=== PATIENT | male | born 2000 | race Caucasian/White ===

== ENCOUNTER 2021-01-29 12:29 | Emergency (ER) | payer BC ==
[2021-01-29] MEDS ORDERED: Erythromycin Base 0.5% Ophth Oint 3.5 GM Tube ONE (13:00)
--- NOTE | 2021-01-29 13:04 | EDM.PDOC ---
ED HPI GENERAL MEDICAL PROBLEM - General Chief Complaint: Eye Problems Stated Complaint: EYE PAIN Time Seen by Provider: 01/29/21 12:30 Source of Information: Reports: Patient History Limitations: Reports: No Limitations - History of Present Illness INITIAL COMMENTS - FREE TEXT/NARRATIVE: patient presented to the ER with a c/o right eye discomfort - h/o stye in the past. no fever or chills, no use of contacts. has been there for a week - tried warm pads - but nothing helped . Onset: Gradual Duration: Week(s): (1) Right Eye Pain Score (Numeric/FACES): 7 - Related Data Allergies Allergy/AdvReac Type Severity Reaction Status Date / Time No Known Allergies Allergy Verified 01/29/21 12:38 Home Meds: Home Meds Calcium Carbonate [Tums] 200 mg PO ASDIRECTED 01/29/21 [History] Erythromycin Base [Erythromycin 0.5% Ophth Oint] 1 applic OP Q12H #1 tube 01/29/21 [Rx] Past Medical History - Past Health History Medical/Surgical History: Denies Medical/Surgical History Social & Family History - Recreational Drug Use Drug Use in Last 12 Months: No ED ROS GENERAL - Review of Systems Review Of Systems: See Below Constitutional: Reports: No Symptoms Respiratory: Reports: No Symptoms Cardiovascular: Reports: No Symptoms GI/Abdominal: Reports: No Symptoms : Reports: No Symptoms Musculoskeletal: Reports: No Symptoms Skin: Reports: No Symptoms Neurological: Reports: No Symptoms ED EXAM GENERAL W FULL EYE - Physical Exam Exam: See Below Exam Limited By: No Limitations General Appearance: Alert, WD/WN, No Apparent Distress Eye Exam: Right Eye: Other (eye lid has a tender white spot) Eyelids: Right: Stye Conjunctiva & Sclera: Bilateral: Normal Appearance Cornea Exam: Bilateral: Normal Appearance Extraocular Movements: Bilateral: Intact Head: Atraumatic Respiratory/Chest: No Respiratory Distress Cardiovascular: Regular Rate, Rhythm Extremities: Normal Range of Motion Neurological: Alert, Oriented, Normal Cognition, Normal Gait, No Motor/Sensory Deficits Course - Vital Signs Last Recorded V/S: Last Vital Signs Temp 37.0 C 01/29/21 12:35 Pulse 84 01/29/21 12:35 Resp 18 01/29/21 12:35 BP 125/84 01/29/21 12:35 Pulse Ox 98 01/29/21 12:35 - Re-Assessments/Exams Free Text/Narrative Re-Assessment/Exam: 01/29/21 13:07 I&D of the stye using a 30 gauge needle small amount of purulent fluids was drained patient reports immediate relief of pressure Abx ointment was given Departure - Departure Time of Disposition: 13:08 Disposition: Home, Self-Care 01 Condition: Good Clinical Impression: Stye Qualifiers: Laterality: right Eyelid: upper Qualified Code(s): H00.011 - Hordeolum externum right upper eyelid - Discharge Information *PRESCRIPTION DRUG MONITORING PROGRAM REVIEWED*: Not Applicable *COPY OF PRESCRIPTION DRUG MONITORING REPORT IN PATIENT [facility]: Not Applicable Prescriptions: Erythromycin Base [Erythromycin 0.5% Ophth Oint] 1 applic OP Q12H #1 tube Instructions: Artificial Tears eye ointment, Stye Referrals: PCP,None [Primary Care Provider] - Forms: ED Department Discharge Additional Instructions: - apply antibiotic ointment on the eyelid at least twice daily - continue to use warm pads to help with the drainage - return to the ER if any concerns - recommend to wash the eyelids and eye lashed everyday to prevent any future infections Sepsis Event Note (ED) - Evaluation Sepsis Screening Result: No Definite Risk - Focused Exam Vital Signs: Vital Signs Temp Pulse Resp BP Pulse Ox 01/29/21 12:35 37.0 C 84 18 125/84 98 - Problem List & Annotations (1) Stye SNOMED Code(s): 7100404 Code(s): H00.019 - HORDEOLUM EXTERNUM UNSPECIFIED EYE, UNSPECIFIED EYELID Status: Acute Priority: Low Current Visit: Yes Qualifiers: Laterality: right Eyelid: upper Qualified Code(s): H00.011 - Hordeolum externum right upper eyelid - Problem List Review Problem List Initiated/Reviewed/Updated: Yes - Assessment/Plan Plan: - apply antibiotic ointment on the eyelid at least twice daily - continue to use warm pads to help with the drainage - return to the ER if any concerns - recommend to wash the eyelids and eye lashed everyday to prevent any future infections
== END 2021-01-29 13:12 | disposition home or self-care (01) ==
LOC: LB.ED 12:29
DX: H00.11 Chalazion right upper eyelid (principal)
CPT/HCPCS: 99283; A9270-GY

== ENCOUNTER 2021-03-11 15:43 | Emergency (ER) | payer BC ==
[2021-03-11] MEDS: diphenhydrAMINE 25 MG Cap PO ONE (16:18)
--- NOTE | 2021-03-11 16:19 | EDM.PDOC ---
ED HPI GENERAL MEDICAL PROBLEM - General Chief Complaint: Skin Complaint Stated Complaint: redness area R elbow Time Seen by Provider: 03/11/21 16:00 Source of Information: Reports: Patient History Limitations: Reports: No Limitations - History of Present Illness INITIAL COMMENTS - FREE TEXT/NARRATIVE: pt presents with approx. 16hrs of redness and itching of "I think it was a m osquito or horsefly" bite to his right medial elbow. denies exposure of elbow to ticks, denies fever, chills, wound or drainage of right elbow. Right Arm Pain Score (Numeric/FACES): 2 - Related Data Allergies Allergy/AdvReac Type Severity Reaction Status Date / Time No Known Allergies Allergy Verified 01/29/21 12:38 Home Meds: Home Meds Calcium Carbonate [Tums] 200 mg PO ASDIRECTED 01/29/21 [History] Erythromycin Base [Erythromycin 0.5% Ophth Oint] 1 applic OP Q12H #1 tube 01/29/21 [Rx] Past Medical History - Past Health History Medical/Surgical History: Denies Medical/Surgical History Social & Family History - Tobacco Use Tobacco Use Status *Q: Current Every Day Tobacco User Years of Tobacco use: 3 Packs/Tins Daily: 1 ED ROS GENERAL - Review of Systems Review Of Systems: Comprehensive ROS is negative, except as noted in HPI. ED EXAM, SKIN/RASH Exam: See Below Exam Limited By: No Limitations General Appearance: Alert, WD/WN, No Apparent Distress Throat/Mouth: Normal Inspection, Normal Lips, Normal Gums, Normal Oropharynx, Normal Voice, No Airway Compromise Respiratory/Chest: No Respiratory Distress, Normal Breath Sounds Cardiovascular: Normal Peripheral Pulses, Regular Rate, Rhythm, No Edema Peripheral Pulses: 2+: Radial (L), Radial (R) Extremities: Normal Range of Motion, Other (erythemous rash to right medial elbow, slightly raised centrally 2x2cm. no purpuric or macular lesion, no crusting or cobblestoning of integument.) Neurological: Alert, Oriented, CN II-XII Intact, Normal Cognition, Normal Gait Skin: Warm, Dry, Intact Lymphatic: No Adenopathy Course - Vital Signs Last Recorded V/S: Last Vital Signs Temp 98.9 F 03/11/21 15:48 Pulse 80 03/11/21 15:48 Resp 16 03/11/21 15:48 BP 117/66 07/11/21 15:48 Pulse Ox 99 03/11/21 15:48 - Orders/Labs/Meds Meds: Medications Discontinued Medications Generic Name Dose Route Start Last Admin Trade Name Luis PRN Reason Stop Dose Admin Diphenhydramine HCl 50 mg 03/11/21 16:10 Diphenhydramine 25 Mg Cap PO 03/11/21 16:11 ONETIME ONE Departure - Departure Time of Disposition: 17:31 Disposition: Home, Self-Care 01 Condition: Good Clinical Impression: Bug bite of shoulder or upper arm - Discharge Information *PRESCRIPTION DRUG MONITORING PROGRAM REVIEWED*: Not Applicable *COPY OF PRESCRIPTION DRUG MONITORING REPORT IN PATIENT [facility]: Not Applicable Referrals: PCP,None [Primary Care Provider] - Additional Instructions: monitor for spreading redness, fever, lump in your armpit, draining pus. if this redness spreads, return to ER or clinic tomorrow. you may take another 50mg benadryl tonight before bed. Sepsis Event Note (ED) - Evaluation Sepsis Screening Result: No Definite Risk - Focused Exam Vital Signs: Vital Signs Temp Pulse Resp BP Pulse Ox 03/11/21 15:48 98.9 F 80 16 117/66 99 - Problem List & Annotations (1) Bug bite of shoulder or upper arm SNOMED Code(s): 221273885 Code(s): ZGC0577 - Status: Acute Current Visit: Yes - Problem List Review Problem List Initiated/Reviewed/Updated: Yes - Assessment/Plan Assessment:: assessment: bug bite of right elbow plan: monitor redness and return if it spreads outside of marked area. appears more like localized allergic reaction vs cellulitis. may take benadryl 50mg tonight before bed.
[2021-03-11] MEDS: diphenhydrAMINE 50 MG Cap ONE ×2 (16:22→16:27)
== END 2021-03-11 17:40 | disposition home or self-care (01) ==
LOC: LB.ED 15:43
DX: S50.361A Insect bite (nonvenomous) of right elbow, initial encounter (principal); Z72.0 Tobacco use; W57.XXXA Bitten or stung by nonvenomous insect and other nonvenomous arthropods, initial encounter
CPT/HCPCS: 99282; A9270